=== PATIENT | female | born 1975 | race Caucasian/White ===

== ENCOUNTER 2017-05-09 23:52 | Emergency (ER) | payer OTHER ==
[2017-05-10] MEDS ORDERED: TDAP ADULT 0.5 ML INJ (BOOSTRIX) IM ONE (00:12)
--- NOTE | 2017-05-10 00:16 | EDPHY ---
H & P Time Seen by Provider: 05/10/17 00:07 HPI/ROS: CHIEF COMPLAINT: Arm abrasion HISTORY OF PRESENT ILLNESS: 41-year-old [employer] sustained accidental abrasion to her left volar forearm wall in the line of duty this evening. Tetanus out-of-date. No paresthesia. No sensory or motor deficit. (Prior to examination, patient consented to physical exam, hands were washed and my usual and customary physical exam procedures followed) 1) GENERAL: Well-developed, well-nourished, alert and oriented. Appears to be in no acute distress. 2) HEAD: Normocephalic 3) HEENT: sclera anicteric 4) LUNGS: Breathing comfortably. 5) SKIN: 4 cm superficial abrasion left forearm 6) MUSCULOSKELETAL: soft compartments. No lymphangitic streaking. No signs of infection. Distal pulses and capillary refill are brisk. (Devin Crews) Constitutional: Initial Vital Signs Temperature (C) 36.2 C 05/10/17 00:34 Heart Rate 79 05/10/17 00:34 Respiratory Rate 18 05/10/17 00:34 Blood Pressure 125/77 H 05/10/17 00:34 O2 Sat (%) 96 05/10/17 00:34 O2 Delivery Mode Room Air MDM/Departure - MDM Medications Given: Discontinued Medications Diphtheria/Tetanus/Acell Pertussis (Boostrix) 0.5 ml IM .ONCE ONE Stop: 05/10/17 00:13 Last Admin: 05/10/17 00:28 Dose: 0.5 ml ED Course/Re-evaluation: Patient's wound has been dressed , clean, tetanus updated usual and customary wound precautions and instructions provided. (Devin Crews) PHYSICIAN DOCUMENTATION: The patient was evaluated and managed by the Physician Software Intern. My co- signature indicates that I have reviewed this chart and I agree with the findings and plan of care as documented. I am the secondary supervising physician. (Greta Martin) - Depart Disposition: Home, Routine, Self-Care Clinical Impression: Abrasion of left forearm Qualifiers: Encounter type: initial encounter Qualified Code(s): S50.812A - Abrasion of left forearm, initial encounter Condition: Good Instructions: Abrasion (ED) Additional Instructions: Return to the ER if you develop redness, swelling, discharge, warmth to the wound, red streaks going up your arm or any other symptoms that concern you. Stand Alone Forms: Work Comp Follow Up Referrals: Follow-up, with your work comp provider in 2-3 days [Other] - As per Instructions
[2017-05-10 00:37] VITALS: BP 125/77; PULSE 79; RESP 18; TEMP 97.2; O2SAT 96
== END 2017-05-10 00:43 | disposition home or self-care (01) ==
PROC: 3E0234Z Introduction of Serum, Toxoid and Vaccine into Muscle, Percutaneous Approach (ICD-10-PCS; principal; 2017-05-09)
DX: S50.812A Abrasion of left forearm, initial encounter (principal); Z23 Encounter for immunization; W22.8XXA Striking against or struck by other objects, initial encounter; Y92.69 Other specified industrial and construction area as the place of occurrence of the external cause; Y99.0 Civilian activity done for income or pay; Y93.89 Activity, other specified

== ENCOUNTER 2017-10-18 01:45 | Emergency (ER) | payer OTHER ==
[2017-10-18 01:50] VITALS: BP 122/78; PULSE 79; RESP 16; TEMP 97.9; O2SAT 96
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
== END 2017-10-18 02:18 | disposition home or self-care (01) ==
DX: S63.641A Sprain of metacarpophalangeal joint of right thumb, initial encounter (principal); X58.XXXA Exposure to other specified factors, initial encounter; Y92.69 Other specified industrial and construction area as the place of occurrence of the external cause; Y99.0 Civilian activity done for income or pay; Y93.89 Activity, other specified
CPT/HCPCS: L3807